=== PATIENT | female | born 1960 ===

== ENCOUNTER 2018-06-14 10:16 | Emergency (ER) | payer OTHER ==
[2018-06-14 10:16] VITALS: BMI 45.3
[2018-06-14 10:31] VITALS: O2SAT 99
[2018-06-14] MEDS ORDERED: Sodium Chloride 0.9% 1,000 ML IV STA (10:55)
[2018-06-14 11:01] LABS: URINE APPEARANCE CLEAR (CLEAR); URINE BILIRUBIN NEGATIVE (NEGATIVE); URINE BLOOD MODERATE (NEGATIVE); URINE COLOR YELLOW (YELLOW); URINE GLUCOSE (UA) NEGATIVE (NEGATIVE); URINE LEUKOCYTE ESTERASE TRACE Leu/uL (NEGATIVE); URINE PROTEIN 30 mg/dL (<30 mg/dL); URINE UROBILINOGEN 0.2 E.U./dL (<1 E.U./dL)
--- NOTE | 2018-06-14 11:04 | ED PDOC ---
Arrival/HPI - General Chief Complaint: Abdominal Pain Time Seen by Provider: 06/14/18 10:33 Historian: Patient - History of Present Illness Narrative History of Present Illness (Text): 57 year old female w/ hx of Kidney stones, HTN, DM2, L masectomy for Breast CA, Hysterectomy for fibroids p/w Left flank pain. Pt notes left flank pain began 1 week prior, sharp stabbing, intermittent, radiating from L flank to groin, exactly alike previous kidney stone pain for which the patient was here 2 years ago. She denies any abdominal pain or throbbing pulsations from her abdomen. No trauma or ripping or tearing sensation in her back or abdomen. No difficulty ambulating. Full control of bowel and bladder. No saddle anesthesia. She notes x2 episodes of vomiting, non-bilious, non bloody last night with the abdominal pain. Last stool was this morning, non dark, non bloody. No chest pain or sob. No fever, chills or night sweats. No vaginal d/c. No rash. No trauma. She notes taking advil last night with minor relief. No other complaints. 06/14/18 10:59 Time/Duration: 1 week Symptom Onset: Gradual Symptom Course: Unchanged Quality: Stabbing Severity Level: 6 Activities at Onset: Rest Context: Other (intermittent, no association with activity) Past Medical History - Provider Review Nursing Documentation Reviewed: Yes - Travel History Have you recently traveled outside [place] w/in the past 3 mons?: No - Patient History Narrative Patient History: HTN, DM2, Masectomy 2/2 Breast CA, Hysterctomy 2/2 fibroid, Kidney stones - Infectious Disease Hx of Infectious Diseases: None - Reproductive Menopause: Yes Currently : No (hysterectomy) - Cardiac Hx Cardiac Disorders: No Hx Hypertension: Yes - Pulmonary Hx Respiratory Disorders: No - Neurological Hx Neurological Disorder: No - HEENT Hx HEENT Disorder: No - Renal Hx Renal Disorder: No Hx Kidney Stones: Yes (2014) - Endocrine/Metabolic Hx Diabetes Mellitus Type 2: Yes - Hematological/Oncological Hx Blood Disorders: No - Integumentary Hx Dermatological Disorder: No - Musculoskeletal/Rheumatological Hx Musculoskeletal Disorders: No - Gastrointestinal Hx Gastrointestinal Disorders: No - Genitourinary/Gynecological Hx Genitourinary Disorders: No - Psychiatric Hx Psychophysiologic Disorder: No Hx Substance Use: No - Surgical History Hx Hysterectomy: Yes - Anesthesia Hx Anesthesia Reactions: No - Suicidal Assessment Suicidal Thoughts: No Plan: No Feels Threatened In Home Enviroment: No Family/Social History Family/Social History: No Known Family HX Smoking Status: Never Smoked Hx Alcohol Use: No Hx Substance Use: No Hx Substance Use Treatment: No Allergies/Home Meds Allergies/Adverse Reactions: Allergies No Known Allergies Allergy (Verified 06/02/15 09:49) Home Medications: Home Meds Medication Instructions Recorded Confirmed Lisinopril 5 mg PO DAILY 06/02/15 06/02/15 MetFORMIN [glucOPHAGE] 500 mg PO BID 06/02/15 06/02/15 Review of Systems - Review of Systems Constitutional: Normal. absent: Fevers, Night Sweats Eyes: Normal. absent: Vision Changes, Photophobia ENT: Normal Respiratory: Normal. absent: SOB, Cough Cardiovascular: Normal. absent: Chest Pain Gastrointestinal: Nausea. absent: Abdominal Pain, Constipation, Diarrhea Genitourinary Female: Normal Musculoskeletal: Back Pain. absent: Arthralgias, Neck Pain, Joint Swelling, Myalgias Skin: Normal. absent: Rash, Laceration, Cellulitis Neurological: Normal. absent: Headache Endocrine: Normal Hemo/Lymphatic: Normal Psychiatric: Normal Physical Exam Vital Signs Reviewed: Yes Vital Signs Temp Pulse Resp BP Pulse Ox 06/14/18 10:26 99.4 F 85 16 126/76 99 Temperature: Afebrile Blood Pressure: Normal Pulse: Regular Appearance: Positive for: Well-Appearing, Non-Toxic Pain Distress: Mild Mental Status: Positive for: Alert and Oriented X 3 - Systems Exam Head: Present: Atraumatic, Normocephalic Pupils: Present: PERRL Extroacular Muscles: Present: EOMI Conjunctiva: Present: Normal Mouth: Present: Moist Mucous Membranes Neck: Present: Normal Range of Motion Respiratory/Chest: Present: Clear to Auscultation, Good Air Exchange. No: Respiratory Distress, Accessory Muscle Use Cardiovascular: Present: Regular Rate and Rhythm, Normal S1, S2. No: Murmurs Abdomen: Present: Normal Bowel Sounds. No: Tenderness, Distention, Peritoneal Signs, Rebound, Guarding, Rovsing's Sign Present Back: Present: CVA Tenderness ( Left). No: Midline Tenderness, Paraspinal Tenderness, Pain with Leg Raise, Decubitus Ulcer Upper Extremity: Present: Normal Inspection. No: Cyanosis, Edema Lower Extremity: Present: Normal Inspection. No: Edema Neurological: Present: GCS=15, CN II-XII Intact, Speech Normal Skin: Present: Warm, Dry, Normal Color. No: Rashes Psychiatric: Present: Alert, Oriented x 3, Normal Insight, Normal Concentration Medical Decision Making ED Course and Treatment: 57 yr old female w/ hx of renal colic, HTN, DM2, Hysterectomy + L masectomy p/w L Flank Pain w/ L CVAT. No ripping pain, well controlled pressures. No pulse differential in LE. No discoloration. Pain feels exactly like previous kidney stone. No CP or SOB. No Midline back pain, saddle anesthesia, upgoing weakness. Will seek ct and rx pain. 06/14/18 11:12 CT results reviewed x2 5mm stones, distal left ureter w/ mild hydro. Cr elevation 1.0 to 1.3, still making urine per pt. Likely dehydration related. Pt states she is non- vomiting, without pain currently and ok to take pain meds, cipro and flomax at home. Will give f/u with uro. 06/14/18 12:58 Reassessment Condition: Re-examined, Improved - Lab Interpretations Lab Results: 06/14/18 11:20 06/14/18 11:20 Lab Results 06/14/18 11:20: Sodium 139, Potassium 3.6, Chloride 102, Carbon Dioxide 26, Anion Gap 15, BUN 30 H, Creatinine 1.3 H, Est GFR ( Amer) 51, Est GFR ( Non-Af Amer) 42, Random Glucose 115 H, Calcium 9.6, Total Bilirubin 0.7, AST 25 , ALT 19, Alkaline Phosphatase 51, Total Protein 7.2, Albumin 4.2, Globulin 3.1 , Albumin/Globulin Ratio 1.4 06/14/18 11:20: WBC 10.0 D, RBC 4.06, Hgb 12.0, Hct 34.8 L, MCV 85.7, MCH 29.6 , MCHC 34.5, RDW 13.0, Plt Count 342, MPV 9.9, Gran % 82.5 H, Lymph % (Auto) 13.7 L, [place] % (Auto) 3.5, Eos % (Auto) 0.1 L, Baso % (Auto) 0.2, Gran # 8.22 H , Lymph # (Auto) 1.4, [place] # (Auto) 0.4, Eos # (Auto) 0.0, Baso # (Auto) 0.02 06/14/18 10:40: Urine Color Yellow, Urine Appearance Clear, Urine pH 6.0, Ur Specific [place] 1.025, Urine Protein 30 H, Urine Glucose (UA) Negative, Urine Ketones Negative, Urine Blood Moderate H, Urine Nitrate Negative, Urine Bilirubin Negative, Urine Urobilinogen 0.2, Ur Leukocyte Esterase Trace H, Urine RBC 15 - 20, Urine WBC 5 - 10, Ur Epithelial Cells 4 - 5, Urine Bacteria Mod, Urine Other Uyeast - RAD Interpretation Radiology Orders: 06/14/18 10:55 ABD & PELVIS W/O PO OR IV CONT [CT] Stat - Medication Orders Current Medication Orders: Sodium Chloride (Sodium Chloride 0.9%) 1,000 mls @ 100 mls/hr IV .Q10H STA Stop: 06/14/18 20:54 Last Admin: 06/14/18 11:12 Dose: 100 mls/hr eMAR Start Stop Document 06/14/18 11:12 MESFIN (Rec: 06/14/18 11:13 MESFIN [id number]) Intravenous Solution Start Date 06/14/18 Start Time 11:13 End Date 06/14/18 End time 12:13 Total Infusion Time 60 Discontinued Medications Ketorolac Tromethamine (Toradol) 30 mg IVP STAT STA Stop: 06/14/18 10:56 Last Admin: 06/14/18 11:23 Dose: 30 mg MAR Pain Assessment Document 06/14/18 11:23 HI (Rec: 06/14/18 11:24 HI [id number]) Pain Reassessment Is this a pain reassessment? No Sleep Is patient sleeping during reassessment? No Presence of Pain Presence of Pain Yes IVP Administration Document 06/14/18 11:23 HI (Rec: 06/14/18 11:24 HI [id number]) Charges for Administration # of IVP Administrations 1 Ondansetron HCl (Zofran Inj) 4 mg IVP STAT STA Stop: 06/14/18 10:56 Last Admin: 06/14/18 11:24 Dose: 4 mg IVP Administration Document 06/14/18 11:24 HI (Rec: 06/14/18 11:24 W[place] [id number]) Charges for Administration # of IVP Administrations 1 Disposition/Present on Arrival - Present on Arrival Any Indicators Present on Arrival: No History of DVT/PE: No History of Uncontrolled Diabetes: No Urinary Catheter: No History of Decub. Ulcer: No History Surgical Site Infection Following: None - Disposition Have Diagnosis and Disposition been Completed?: Yes Diagnosis: Nephrolithiasis, Kidney stone on left side Disposition: HOME/ ROUTINE Disposition Time: 13:03 Patient Plan: Discharge Patient Problems: Current Active Problems Problem Status Onset Kidney stone on left side Acute Nephrolithiasis Acute Condition: IMPROVED Discharge Instructions (ExitCare): Kidney Stones in Adults, Flank Pain, Renal Colic Additional Instructions: KASH MONTES, thank you for letting us take care of you today. Your provider was Jair Whitehead and you were treated for LEFT FLANK PAIN, KIDNEY STONE. The emergency medical care you received today was directed at your acute symptoms. If you were prescribed any medication, please fill it and take as directed. It may take several days for your symptoms to resolve. Return to the Emergency Department if your symptoms worsen, do not improve, or if you have any other problems. Please contact your doctor or call one of the physicians/clinics you have been referred to that are listed on the Patient Visit Information form that is included in your discharge packet. Bring any paperwork you were given at discharge with you along with any medications you are taking to your follow up visit. Our treatment cannot replace ongoing medical care by a primary care provider outside of the emergency department. Thank you for allowing the [facility] team to be part of your care today. If you had an X-Ray or CT scan: A Radiologist will review the ED reading if any change in treatment is needed we will contact you. If you had a blood, urine, or wound culture: It will take several days for the results, if any change in treatment is needed we will contact you. If you had an STI test: It will take 48 hours for the results. Please call after 1 week if you have not heard back. Prescriptions: Ciprofloxacin [Cipro] 500 mg PO BID 7 Days #14 tab oxyCODONE/Acetaminophen [Percocet 5/325 mg Tab] 1 ea PO Q8H 3 Days #9 tab Tamsulosin HCl [Flomax] 0.4 mg PO QAM 14 Days #14 cap.er.24h Referrals: Brady Lee MD [Primary Care Provider] - Follow up with primary Iram Culp MD [Staff Provider] - Follow up with primary (Follow up JOSE MIGUEL) Forms: [employer] (Swedish), WORK NOTE
[2018-06-14 11:08] LABS: URINE RBC 15 - 20 /hpf (0-2)
[2018-06-14 11:09] LABS: URINE BACTERIA MOD (NEG)
[2018-06-14 11:42] LABS: ALB/GLOB RATIO 1.4 (1.1-1.8); ALBUMIN 4.2 g/dL (3.0-4.8); CALCIUM 9.6 mg/dL (8.4-10.5)
[2018-06-14 11:47] LABS: BASO # 0.02 K/mm3 (0.0-2.0); BASO % 0.2 % (0.0-3.0); EOS % 0.1 % (1.5-5.0); GRAN # 8.22 (1.4-6.5); GRAN % 82.5 % (50.0-68.0); LYMPH # 1.4 (1.2-3.4); LYMPH % 13.7 % (22.0-35.0); MEAN CELL VOLUME 85.7 fl (80.0-105.0); MEAN CORPUSCULAR HEMOGLOBIN 29.6 pg (25.0-35.0); MEAN CORPUSCULAR HGB CONC 34.5 g/dl (31.0-37.0); MEAN PLATELET VOLUME 9.9 fl (7.0-11.0); MONO # 0.4 (0.1-0.6); MONO % 3.5 % (1.0-6.0); RBC 4.06 10^6/uL (3.5-6.1)
--- NOTE | 2018-06-14 12:18 | CT ---
Date of service: 06/14/2018 PROCEDURE: CT Abdomen and Pelvis without intravenous contrast HISTORY: L flank pain, hx of Nephrolithiasis COMPARISON: 06/02/2015 TECHNIQUE: Without contrast.. Contrast dose: Radiation dose: Total exam DLP = 304 mGy-cm. This CT exam was performed using one or more of the following dose reduction techniques: Automated exposure control, adjustment of the mA and/or kV according to patient size, and/or use of iterative reconstruction technique. FINDINGS: LOWER THORAX: Unremarkable. LIVER: Unremarkable. No gross lesion or ductal dilatation. GALLBLADDER AND BILE DUCTS: Unremarkable. PANCREAS: Unremarkable. No gross lesion or ductal dilatation. SPLEEN: Unremarkable. ADRENALS: Unremarkable. No mass. KIDNEYS AND URETERS: Multiple bilateral renal stones are seen. There are 2 separate left distal ureteral stones measuring 5 mm in diameter. These are best visualized on image 56 in the coronal plane. There is mild left-sided hydronephrosis and hydroureter VASCULATURE: Unremarkable. No aortic aneurysm. BOWEL: Unremarkable. No obstruction. No gross mural thickening. APPENDIX: Unremarkable. Normal appendix. PERITONEUM: Unremarkable. No free fluid. No free air. LYMPH NODES: Unremarkable. No enlarged lymph nodes. BLADDER: Unremarkable. REPRODUCTIVE: Unremarkable. BONES: No acute fracture. OTHER FINDINGS: None. IMPRESSION: Multiple bilateral renal stones are seen. There are 2 separate left distal ureteral stones measuring 5 mm in diameter. There is mild left-sided hydronephrosis and hydroureter
[2018-06-14 13:57] VITALS: BP 132/72; PULSE 87; RESP 18; TEMP 98.9
== END 2018-06-14 13:35 | disposition home or self-care (01) ==
LOC: ED 10:16
DX: N20.0 Calculus of kidney (principal); E11.9 Type 2 diabetes mellitus without complications; I10 Essential (primary) hypertension; Z85.3 Personal history of malignant neoplasm of breast
CPT/HCPCS: 74176; 80053; 81001; 85025; 87086; 96361; 96374; 96375; 99285; J1885; J2405; J7030